=== PATIENT | male | born 1945 | race Caucasian/White ===

== ENCOUNTER 2018-02-26 09:30 | Observation (INO) ==
[2018-02-26] MEDS ORDERED: Nitroglycerin 0.4 MG TAB.SUBL SL ONE (09:44)
[2018-02-26] MEDS ORDERED: Aspirin 81 MG TAB.CHEW PO ONE (09:44)
--- NOTE | 2018-02-26 09:59 | Emergency Department Note ---
Disposition Clinical Impression: SHANNAN (acute kidney injury), Shortness of breath Chest pain Qualifiers: Chest pain type: chest pain on breathing Qualified Code(s): R07.1 - Chest pain on breathing Atrial fibrillation Qualifiers: Atrial fibrillation type: unspecified Qualified Code(s): I48.91 - Unspecified atrial fibrillation Disposition: Admitted As Inpatient Condition: Fair Referrals: Yusef Rodas Jr, MD [Primary Care Provider] - Forms: ED Satisfaction Letter Chest Pain HPI - General Chief Complaint: ED Chest Pain Stated Complaint: chest pain Time Seen by Provider: 02/26/18 09:36 Source: patient, family Limitations: no limitations Vital Signs Reviewed: Yes - History of Present Illness HPI Narrative: The patient is a 72 year old male with a history of CAD, HTN, DM type II, atrial fibrillation on eliquis that presents with chest pain. per patient's report, starting last night around 18:30 last night he develops persistent left- sided chest pain that is achy in character and radiates up into the left neck. His chest pain is exacerbated by deep breaths. He denies exacerbation of his chest pain with exertion. He denies any alleviating factors and states resting does not help to alleviated his chest pain. Patient rates his pain a 7-8/10 at present. Patient denies any prior similar episodes and says this does no feel the same when he had to have cariac stents in the past. Patient admits to dyspnea, chills, and night sweats. Patient denies nay fever, headaches, dizziness, palpitation, abdominal pain, nausea, vomiting, diarrhea, hematuria, hematochezia, melena, numbness, tingling, and weakness. Patient took 81 mg of ASA and his Eliquis at home this morning. Patient is on testosterone therapy. He denies any recent hospitalization, extended travel, surgeries, history of DVT and PE. I have re-performed and reviewed the history documented by the medical student, and I confirm its accuracy except as noted below 2-year-old male history CAD, hypertension, diabetes and A. fib on Eliquis presented here with chest pain. He said it did start last night and is left- sided achy radiating up into the left neck. Worsening with deep breaths exacerbation does not change it. Patient states the pain is 7 out of 10 currently and has worsened over the night of the cause them to come in. He does have history of cardiac stents. He does take a baby aspirin as well as Eliquis which he took this morning. She also has shortness of breath. This is a very uncommon for him. He does not have any complaints at this time including no headaches, blurry vision, neck pain, back pain, abdominal pain, changes in bowel movements, pain with urination, pain or tingling going down the arms or legs or any generalized weakness. Severity scale (1-10): 8 - Related Data Home Medications Medication Instructions Recorded Confirmed Acetaminophen/Butalbital/Caffe 1 tab PO Q4-6H PRN 02/26/18 02/26/18 [Fioricet] Apixaban [Eliquis] 2.5 mg PO BID 02/26/18 02/26/18 Aspirin [Adult Aspirin] 81 mg PO DAILY 02/26/18 02/26/18 Carvedilol 12.5 mg PO BID 02/26/18 02/26/18 Cyanocobalamin (Vitamin B-12) 1,000 mcg PO DAILY 02/26/18 02/26/18 [Vitamin B12] Eszopiclone [Lunesta] 2 mg PO HS PRN 02/26/18 02/26/18 Isosorbide MONOnitrate (24 HR) 30 mg PO DAILY 02/26/18 02/26/18 [Imdur] SitaGLIPtin [Januvia] 100 mg PO DAILY 02/26/18 02/26/18 Testosterone Cypionate 200 mg IM QWEEK 02/26/18 02/26/18 [Depo-Testosterone] Tramadol HCl [Ultram] 50 mg PO QID PRN 02/26/18 02/26/18 amLODIPine [Norvasc] 5 mg PO DAILY 02/26/18 02/26/18 metFORMIN [Glucophage] 1,000 mg PO BIDWM 02/26/18 02/26/18 Allergies Allergy/AdvReac Type Severity Reaction Status Date / Time fluconazole [From Diflucan] AdvReac Hives Verified 05/29/15 10:43 All systems ED: reviewed and negative except as stated. Review of Systems: As Per HPI Constitutional: Reports: chills, night sweats. Denies: fever Eyes: Denies: eye pain, vision change ENT ED: Denies: throat pain, congestion Cardiovascular: Reports: chest pain. Denies: palpitations, syncope Respiratory: Reports: dyspnea. Denies: cough, sputum production Gastrointestinal: Denies: abdominal pain, nausea, vomiting, diarrhea, constipation, hematemesis, melena Genitourinary: Denies: urgency, dysuria, frequency, hematuria Musculoskeletal: Reports: neck pain. Denies: back pain Integumentary: Denies: rash, abrasion Neurological: Denies: headache, weakness, numbness, paresthesias Endocrine: Denies: fatigue Hematological/Lymphatic: Denies: easy bleeding, easy bruising Allergic/Immunologic: Denies: facial swelling, urticaria Chest Pain PMH - Past Medical History Medical history: Reports: atrial fibrillation, diabetes, hypertension, other ( hypertension) Surgical history: Reports: other (cardiac stents) Psychiatric history: Reports: no psych history - Social History Smoking Status: Never smoker Alcohol use: Reports: none Drug use: Reports: none Physical Exam - General Limitations: no limitations General appearance: alert, in no apparent distress - Head Head exam: atraumatic, normocephalic - Eye Eye exam: Present: normal appearance. Absent: scleral icterus, conjunctival injection - ENT ENT exam: mucous membranes moist, normal external ear exam - Neck Neck exam: Present: normal inspection, full ROM, trachea midline - Chest Chest inspection: Present: normal inspection, symmetric chest wall rise. Absent : tenderness, rash - Respiratory Respiratory exam: Present: normal lung sounds bilaterally. Absent: respiratory distress, wheezes - Cardiovascular Cardiovascular exam: Present: regular rate, other (irregularly irregular rhythm) . Absent: systolic murmur, diastolic murmur, rubs, gallop - Expanded Cardiovascular Exam Peripheral pulses: 2+: radial (R), radial (L), dorsalis pedis (R), dorsalis pedis (L) - Abdominal Exam Abdominal exam: Present: soft, Non-Tender, normal bowel sounds. Absent: distention, guarding, rebound, rigidity - Extremities Exam Extremities exam: Present: normal inspection, full ROM. Absent: pedal edema - Back Exam Back exam: Present: normal inspection, full ROM. Absent: rashes - Neurological Exam Neurological exam: Present: alert, oriented X3 - Psychiatric Psychiatric exam: Present: normal affect, normal mood - Skin Skin exam: Present: warm, dry, intact, normal color. Absent: rash, cyanosis Course Course Narrative: 32-year-old male presented here with chest pain EKG had some changes so we did get an immediate EKG as well as getting basic labs including CBC, BMP, troponin. EKG first showed some odd changes so we did get a repeat EKG depending on these results will depend our disposition. Patient was also started with nitroglycerin he is on Eliquis R took a baby aspirin. Vital Signs Temperature 98.1 F 02/26/18 09:38 Pulse Rate 95 02/26/18 09:38 Respiratory Rate 18 02/26/18 09:38 Blood Pressure 135/100 02/26/18 09:38 O2 Sat by Pulse Oximetry 97 02/26/18 09:38 Temperature 98.1 F 02/26/18 09:38 Pulse Rate 75 02/26/18 11:28 Respiratory Rate 16 02/26/18 11:28 Blood Pressure 112/64 02/26/18 11:28 O2 Sat by Pulse Oximetry 100 02/26/18 11:28 Oxygen Delivery Oxygen Delivery Aerosol Mask Chest Pain - [facility] Narrative Medical decision making narrative: Patient presented here in chest pain as well as very diaphoretic he said the pain was very bad and is having a hard time breathing. We did give the first EKG which should have mild ST elevation in lead 1 just on a few beats of his said to get a repeat EKG at that time lead 1 and lead 2 and aVL all showed ST elevation so this time we decided to call a STEMI alert. I spoke with Dr. Gallegos and he said he would come to bedside and see the patient. The STEMI alert was called at [address] Gallegos came by and reviewed the EKGs and saw the patient at bedside. He felt that he was going to wait until labs came back until he wanted to take the patient to the [facility]. He said he was more worried about pericarditis or possible aortic aneurysm. So here she recommended that we do a CT and she will of the chest abdomen pelvis to rule out that. He said he would follow up after the labs and the CT on if patient needs catheterization. We started patient on morphine as well as nitroglycerin also gave him IV fluids. Patient did not need any heparin as he was arty on Eliquis. We did a third EKG which again showed the same elevations in lead [address] Gallegos reviewed this at 1019 at bedside and he said it that is time he did not need a catheter and this was not a STEMI. He said he wanted to follow up on the troponin as if patient's pain has been going on for more than 12 hours he should have a bump in his troponin he would take him at that time. Troponin came back not elevated CT chest abdomen pelvis came back with no acute findings. Patient does have known chronic kidney disease but we weighed the risks and benefits of doing CT and she will chest abdomen pelvis we felt that the benefit of getting it to rule out aortic dissection was worthwhile even due to patient's chronic kidney disease. We will give patient a full liter fluid bolus and then follow him with maintenance 150 mL. Patient's kidney disease did show a GFR of 33. I contacted the outsole compressor waste cotton cleaner Dr. Mauricio Staley who agreed with our plan and said they will consult with the patient when he is admitted. I spoke with the family and they said they would like him to be admitted here rather than [facility]. Patient is currently stable at this time. He got a second dose of morphine which has helped with his chest pain also started on DuoNeb nebulizers. Patient also got 125 mg Solu-Medrol as this could be inflammation. Also had an ESR CRP which are still pending. Patient no other lab abnormalities. Patient will be admitted to the hospital service for further evaluation. On the differential this could be acute pericarditis could be pleurisy, could still be an acute RI. We will recommend that cardiology and nephrology continue to follow with the hospitalist service. Patient is still stable with normal vital signs at this time. 1200 Repeat EKG was done which showed no more elevations in 1 and aVL but more increased elevations in V1 through V4. I did send this to the factory focus technician he wanted us to get a stat repeat troponin. That is currently pending at this time. Patient says that the chest pain is nearly gone he did get a DuoNeb which did help tremendously with his pain. He also a second dose of morphine. Solu-Medrol was also started. 1300 spoke with cardiology and patient still not having pain he will not taken to [facility] they will get a repeat troponin as well as a stat echocardiogram. I did speak with the hospitalist Dr. Praod who agreed to admit the patient to their service. Patient is admitted in stable condition. He still chest pain- free. Cardiology said they will hold off on the catheterization until the echocardiogram and troponin return. Chest X-Ray 02/26/18 09:44 IMPRESSION: Low lung volumes. No acute cardiopulmonary disease. D/ / Champ Ortega MD / Champ Ortega MD Interpreting Provider: Champ Ortega MD Chest CTA 02/26/18 10:21 IMPRESSION: 1. No acute abnormality in the chest, abdomen or pelvis. No aortic dissection. No PE. 2. Severe coronary artery disease of the LAD. 3. 1.4 cm right thyroid nodule. No further imaging follow-up is necessary, as outlined below. RECOMMENDATIONS: Managing Incidental Thyroid Nodule Detected at CT or MRI or US 1. Further evaluation by thyroid Ultrasound recommended for these incidental nodules: Patient Age 18 years or less - Nodule of any size Patient Age 19-34 years old - Nodule 1 cm in size or greater Patient Age 35 years or more - Nodule 1.5 cm in size or greater 2. Follow up thyroid ultrasound also recommend in these scenarios - Solitary nodule with high risk imaging features (locally invasive nodule or suspicious lymph nodes) - Heterogeneous, enlarged thyroid gland. - Increased uptake on PET 3. NO further imaging is recommended in the following scenarios - Any nodule not meeting above criteria. - Those patients with limited life expectancy or significant Co-morbidities. Note: These recommendations do not apply to pts. w/ increased risk for thyroid cancer or pts. with symptomatic thyroid disease. Recommendations for f/u of Incidental Thyroid Nodules (ITN) found on CT, MR, NM and Extrathyroidal US are based upon the ACR white paper and Artis 3-tiered system for managing ITNs: J Am Gato Radiol. 2015 Jun;12(2): 143-50 D/ / 02/26/2018 11:12:45 Champ Ortega MD / lucita Interpreting Provider: Champ Ortega MD Abdomen/Pelvis CTA 02/26/18 10:22 IMPRESSION: 1. No acute abnormality in the chest, abdomen or pelvis. No aortic dissection. No PE. 2. Severe coronary artery disease of the LAD. 3. 1.4 cm right thyroid nodule. No further imaging follow-up is necessary, as outlined below. RECOMMENDATIONS: Managing Incidental Thyroid Nodule Detected at CT or MRI or US 1. Further evaluation by thyroid Ultrasound recommended for these incidental nodules: Patient Age 18 years or less - Nodule of any size Patient Age 19-34 years old - Nodule 1 cm in size or greater Patient Age 35 years or more - Nodule 1.5 cm in size or greater 2. Follow up thyroid ultrasound also recommend in these scenarios - Solitary nodule with high risk imaging features (locally invasive nodule or suspicious lymph nodes) - Heterogeneous, enlarged thyroid gland. - Increased uptake on PET 3. NO further imaging is recommended in the following scenarios - Any nodule not meeting above criteria. - Those patients with limited life expectancy or significant Co-morbidities. Note: These recommendations do not apply to pts. w/ increased risk for thyroid cancer or pts. with symptomatic thyroid disease. Recommendations for f/u of Incidental Thyroid Nodules (ITN) found on CT, MR, NM and Extrathyroidal US are based upon the ACR white paper and Artis 3-tiered system for managing ITNs: J Am Gato Radiol. 2015 Jun;12(2): 143-50 D/ / 02/26/2018 11:12:45 Champ Ortega MD / lucita Interpreting Provider: Champ Ortega MD Chest X-Ray 02/26/18 09:44 IMPRESSION: Low lung volumes. No acute cardiopulmonary disease. D/ / Champ Ortega MD / Champ Ortega MD Interpreting Provider: Champ Ortega MD - Medical Records Medical records reviewed: Yes I reviewed the patient's medical records. - Lab Data Lab results reviewed: Yes I reviewed the patient's lab results. Result diagrams: 02/26/18 09:54 02/26/18 09:54 Lab Results 02/26/18 02/26/18 02/26/18 Range/Units 09:44 09:44 09:54 WBC 11.1 (4.3-11.1) K/mcL RBC 5.29 (4.19-5.50) M/mcL Hgb 15.4 (12.9-16.9) g/dL Hct 46.9 (37.5-50.1) % MCV 88.7 (83.0-100.0) fL MCH 29.1 (28.0-33.3) pg MCHC 32.8 (31.6-35.5) g/dL RDW 13.2 (11.5-14.5) % Plt Count 116 L (140-400) K/mcL MPV 12.3 (9.4-12.4) fL Immature Gran % 0.5 (0-4) % Seg Neutrophils % 83.9 % Lymphocytes % 8.5 % Monocytes % 6.6 % Eosinophils % 0.2 % Basophils % 0.3 % Neutrophils # 9.3 H (1.6-8.9) K/mcL Lymphocytes # 0.9 (0.6-4.6) K/mcL Monocytes # 0.7 (0.0-1.3) K/mcL Eosinophils # 0.0 (0.0-0.6) K/mcL Basophils # 0.0 (0.0-0.2) K/mcL ESR (0-10) mm/hr PT 14.7 H (9.4-12.1) Seconds INR 1.3 APTT 39.0 H (26.0-36.0) Seconds Sodium (136-145) mEq/L Potassium (3.5-5.1) mEq/L Chloride (98-107) mEq/L Carbon Dioxide (23-29) mEq/L BUN (8-23) mg/dL Creatinine (0.70-1.30) mg/dL Est GFR ( Amer) (> 60) Est GFR (Non-Af Amer) (> 60) BUN/Creatinine Ratio (6-26) Glucose (70-105) mg/dL Calculated Osmolality (280-300) Calcium (8.6-10.3) mg/dL Troponin I (< 0.04) ng/mL C-Reactive Protein (Less than 10) mg/L B-Natriuretic Peptide 437 H (Less than 100) pg/mL 02/26/18 02/26/18 02/26/18 Range/Units 09:54 11:02 11:45 WBC (4.3-11.1) K/mcL RBC (4.19-5.50) M/mcL Hgb (12.9-16.9) g/dL Hct (37.5-50.1) % MCV (83.0-100.0) fL MCH (28.0-33.3) pg MCHC (31.6-35.5) g/dL RDW (11.5-14.5) % Plt Count (140-400) K/mcL MPV (9.4-12.4) fL Immature Gran % (0-4) % Seg Neutrophils % % Lymphocytes % % Monocytes % % Eosinophils % % Basophils % % Neutrophils # (1.6-8.9) K/mcL Lymphocytes # (0.6-4.6) K/mcL Monocytes # (0.0-1.3) K/mcL Eosinophils # (0.0-0.6) K/mcL Basophils # (0.0-0.2) K/mcL ESR 35 H (0-10) mm/hr PT (9.4-12.1) Seconds INR APTT (26.0-36.0) Seconds Sodium 138 (136-145) mEq/L Potassium 4.1 (3.5-5.1) mEq/L Chloride 102 (98-107) mEq/L Carbon Dioxide 25 (23-29) mEq/L BUN 22 (8-23) mg/dL Creatinine 1.99 H (0.70-1.30) mg/dL Est GFR ( Amer) 40 L (> 60) Est GFR (Non-Af Amer) 33 L (> 60) BUN/Creatinine Ratio 11 (6-26) Glucose 156 H (70-105) mg/dL Calculated Osmolality 293 (280-300) Calcium 9.1 (8.6-10.3) mg/dL Troponin I < 0.03 < 0.03 (< 0.04) ng/mL C-Reactive Protein 68 H (Less than 10) mg/L B-Natriuretic Peptide (Less than 100) pg/mL - Radiology Data Radiology results reviewed: Yes I reviewed the patient's radiology results. - EKG Data EKG attestation: Yes I reviewed and interpreted this EKG. EKG results narrative: EKG #1 done at 0 941 review by myself and attending shows atrial fibrillation at a rate of 98, QRS 98 QTC [address] elevation in leads 1 and aVL just on one beat. Does have a left bundle-branch block. No other acute ST changes or acute T-wave changes no other signs of ischemia. No hypertrophy, heart strain no other heart blocks. No Ludy PW/Brugada/HOCM. EKG #2 shows atrial fibrillation a rate of 95, QRS 102, QTC 435. Patient does have ST elevation in leads 1 and aVL no other reciprocal changes still does have a left bundle branch block in leads V1 through V3. At this time the suicide to call his an acute STEMI. There is no other changes based on previous EKG. EKG #3 shows atrial fibrillation a rate of 73, QRS 97, QTC 388. There is still ST elevation in leads 1 and aVL still the left bundle-branch block in V1 through V3. This was reviewed by the factory focus technician at bedside Dr. Gallegos he feels this is not an acute RI and they will not take to the [facility]. There is no other acute changes based on previous EKGs. EKG #4 done at 1127 shows regular rate and a rate of 79, AK interval 147, QRS 95 , QTC 414. There is no more ST elevation in leads 1 and aVL. Has increased elevations in leads V1 through V4. Otherwise no other signs of ischemia. No other acute changes when compared with earlier ones Heart Score - Score History: Highly Suspicious EKG: Significant ST-Depression Age: Greater than 65 Risk Factors: Equal/Greater than 3 risk factor or history of atherosclerotic disease Troponin: Less than normal limit HEART Score Total: 8 Attestation Statement - Attestation Attestation: I, Brad Perez DO, examined this patient [id number] and my medical decision-making was reviewed with Dr. Michel Little, Resident Physician. I agree with the documented findings, disposition and treatment plan as described except to the extent set forth below. Please see my progress notes for details.
[2018-02-26 10:12] LABS: Basophils % 0.3 %; Eosinophils % 0.2 %; Hematocrit 46.9 % (37.5-50.1); Hemoglobin 15.4 g/dL (12.9-16.9); Immature Granulocytes % 0.5 % (0-4); Lymphocytes # 0.9 K/mcL (0.6-4.6); Lymphocytes % 8.5 %; Mean Corpuscular HGB Conc 32.8 g/dL (31.6-35.5); Mean Corpuscular Hemoglobin 29.1 pg (28.0-33.3); Mean Corpuscular Volume 88.7 fL (83.0-100.0); Mean Platelet Volume 12.3 fL (9.4-12.4); Monocytes # 0.7 K/mcL (0.0-1.3); Monocytes % 6.6 %; Neutrophils # 9.3 K/mcL (1.6-8.9); Platelet Count 116 K/mcL (140-400); Red Blood Count 5.29 M/mcL (4.19-5.50); Red Cell Distribution Width 13.2 % (11.5-14.5); Segmented Neutrophils % 83.9 %
--- NOTE | 2018-02-26 10:12 | Emergency Department Note ---
Disposition Clinical Impression: SHANNAN (acute kidney injury), Atrial fibrillation, Shortness of breath Chest pain Qualifiers: Chest pain type: chest pain on breathing Qualified Code(s): R07.1 - Chest pain on breathing Disposition: Admitted As Inpatient Condition: Fair Referrals: Yusef Rodas Jr, MD [Primary Care Provider] - Forms: ED Satisfaction Letter Time of Disposition: 12:59 General Adult HPI - General Chief complaint: ED Chest Pain Stated complaint: chest pain Time Seen by Provider: 02/26/18 09:36 Source: patient, family Limitations: no limitations - History of Present Illness Pain Scale: 8 - Related Data Home Medications Medication Instructions Recorded Confirmed Acetaminophen/Butalbital/Caffe 1 tab PO Q4-6H PRN 02/26/18 02/26/18 [Fioricet] Apixaban [Eliquis] 2.5 mg PO BID 02/26/18 02/26/18 Aspirin [Adult Aspirin] 81 mg PO DAILY 02/26/18 02/26/18 Carvedilol 12.5 mg PO BID 02/26/18 02/26/18 Cyanocobalamin (Vitamin B-12) 1,000 mcg PO DAILY 02/26/18 02/26/18 [Vitamin B12] Eszopiclone [Lunesta] 2 mg PO HS PRN 02/26/18 02/26/18 Isosorbide MONOnitrate (24 HR) 30 mg PO DAILY 02/26/18 02/26/18 [Imdur] SitaGLIPtin [Januvia] 100 mg PO DAILY 02/26/18 02/26/18 Testosterone Cypionate 200 mg IM QWEEK 02/26/18 02/26/18 [Depo-Testosterone] Tramadol HCl [Ultram] 50 mg PO QID PRN 02/26/18 02/26/18 amLODIPine [Norvasc] 5 mg PO DAILY 02/26/18 02/26/18 metFORMIN [Glucophage] 1,000 mg PO BIDWM 02/26/18 02/26/18 Allergies Allergy/AdvReac Type Severity Reaction Status Date / Time fluconazole [From Diflucan] AdvReac Hives Verified 05/29/15 10:43 Constitutional: Reports: chills, night sweats. Denies: fever Eyes: Denies: eye pain, vision change ENT ED: Denies: throat pain, congestion Cardiovascular: Reports: chest pain. Denies: palpitations, syncope Respiratory: Reports: dyspnea. Denies: cough, sputum production Gastrointestinal: Denies: abdominal pain, nausea, vomiting, diarrhea, constipation, hematemesis, melena Genitourinary: Denies: urgency, dysuria, frequency, hematuria Musculoskeletal: Reports: neck pain. Denies: back pain Integumentary: Denies: rash, abrasion Neurological: Denies: headache, weakness, numbness, paresthesias Past Medical History - Past Medical History Medical history: Reports: atrial fibrillation, diabetes, hypertension, other ( hypertension) Surgical history: Reports: other (cardiac stents) Psychiatric history: Reports: no psych history - Social History Smoking Status: Never smoker Smokeless Tobacco Status: Yes Alcohol use: Reports: none Drug use: Reports: none Physical Exam - General Limitations: no limitations General appearance: alert, in no apparent distress Course Vital Signs Temperature 98.1 F 02/26/18 09:38 Pulse Rate 95 02/26/18 09:38 Respiratory Rate 18 02/26/18 09:38 Blood Pressure 135/100 02/26/18 09:38 O2 Sat by Pulse Oximetry 97 02/26/18 09:38 Temperature 98.1 F 02/26/18 09:38 Pulse Rate 75 02/26/18 11:28 Respiratory Rate 16 02/26/18 11:28 Blood Pressure 112/64 02/26/18 11:28 O2 Sat by Pulse Oximetry 100 02/26/18 11:28 Oxygen Delivery Oxygen Delivery Aerosol Mask Medical Decision Making - Lab Data Result diagrams: 02/26/18 09:54 02/26/18 09:54 Lab Results 02/26/18 02/26/18 02/26/18 Range/Units 09:44 09:44 09:54 WBC 11.1 (4.3-11.1) K/mcL RBC 5.29 (4.19-5.50) M/mcL Hgb 15.4 (12.9-16.9) g/dL Hct 46.9 (37.5-50.1) % MCV 88.7 (83.0-100.0) fL MCH 29.1 (28.0-33.3) pg MCHC 32.8 (31.6-35.5) g/dL RDW 13.2 (11.5-14.5) % Plt Count 116 L (140-400) K/mcL MPV 12.3 (9.4-12.4) fL Immature Gran % 0.5 (0-4) % Seg Neutrophils % 83.9 % Lymphocytes % 8.5 % Monocytes % 6.6 % Eosinophils % 0.2 % Basophils % 0.3 % Neutrophils # 9.3 H (1.6-8.9) K/mcL Lymphocytes # 0.9 (0.6-4.6) K/mcL Monocytes # 0.7 (0.0-1.3) K/mcL Eosinophils # 0.0 (0.0-0.6) K/mcL Basophils # 0.0 (0.0-0.2) K/mcL ESR (0-10) mm/hr PT 14.7 H (9.4-12.1) Seconds INR 1.3 APTT 39.0 H (26.0-36.0) Seconds Sodium (136-145) mEq/L Potassium (3.5-5.1) mEq/L Chloride (98-107) mEq/L Carbon Dioxide (23-29) mEq/L BUN (8-23) mg/dL Creatinine (0.70-1.30) mg/dL Est GFR ( Amer) (> 60) Est GFR (Non-Af Amer) (> 60) BUN/Creatinine Ratio (6-26) Glucose (70-105) mg/dL Calculated Osmolality (280-300) Calcium (8.6-10.3) mg/dL Troponin I (< 0.04) ng/mL C-Reactive Protein (Less than 10) mg/L B-Natriuretic Peptide 437 H (Less than 100) pg/mL 02/26/18 02/26/18 02/26/18 Range/Units 09:54 11:02 11:45 WBC (4.3-11.1) K/mcL RBC (4.19-5.50) M/mcL Hgb (12.9-16.9) g/dL Hct (37.5-50.1) % MCV (83.0-100.0) fL MCH (28.0-33.3) pg MCHC (31.6-35.5) g/dL RDW (11.5-14.5) % Plt Count (140-400) K/mcL MPV (9.4-12.4) fL Immature Gran % (0-4) % Seg Neutrophils % % Lymphocytes % % Monocytes % % Eosinophils % % Basophils % % Neutrophils # (1.6-8.9) K/mcL Lymphocytes # (0.6-4.6) K/mcL Monocytes # (0.0-1.3) K/mcL Eosinophils # (0.0-0.6) K/mcL Basophils # (0.0-0.2) K/mcL ESR 35 H (0-10) mm/hr PT (9.4-12.1) Seconds INR APTT (26.0-36.0) Seconds Sodium 138 (136-145) mEq/L Potassium 4.1 (3.5-5.1) mEq/L Chloride 102 (98-107) mEq/L Carbon Dioxide 25 (23-29) mEq/L BUN 22 (8-23) mg/dL Creatinine 1.99 H (0.70-1.30) mg/dL Est GFR ( Amer) 40 L (> 60) Est GFR (Non-Af Amer) 33 L (> 60) BUN/Creatinine Ratio 11 (6-26) Glucose 156 H (70-105) mg/dL Calculated Osmolality 293 (280-300) Calcium 9.1 (8.6-10.3) mg/dL Troponin I < 0.03 < 0.03 (< 0.04) ng/mL C-Reactive Protein 68 H (Less than 10) mg/L B-Natriuretic Peptide (Less than 100) pg/mL Critical Care Time Critical Care Time: Yes Total Critical Care Time: 45 Attestation: Critical care performed: Time is exclusive of separately billable procedures. Time includes: direct patient care, patient reassessment, coordination of patient care, interpretation of data (laboratory data, radiology data, and respiratory data), review of patient's medical records, medical consultation and documentation of patient care. Procedures included in critical care time: Procedures excluded from critical care time: Attestation Statement - Attestation Attestation: I, Brad Perez DO, examined this patient [id number] and my medical decision-making was reviewed with Dr. Michel Little, Resident Physician. I agree with the documented findings, disposition and treatment plan as described except to the extent set forth below. Please see my progress notes for details. 72-year-old male presents to the emergency room with substernal chest pressure and pain with tightness that is causing him to have shortness of breath. Patient does have a cardiac history including coronary artery disease and stenting completed a per [facility]. Pain started last night and came on acutely and has not moved. The patient is describing some relief of the pain and symptoms when he sits up and leans forward. Denies any recent illnesses. Denies any fevers or chills. Patient was recently diagnosed with atrial fibrillation and was started on Eliquis. Currently he is denying fevers chills nausea vomiting or diarrhea. Denies any headache or vision change. No recent trauma or injury. He denies any hematemesis, hematuria, hematochezia or melena. Patient has not had any other complaints or symptoms up until this last night when he had the onset of the symptom with chest discomfort pressure and pain. He does not have a history of actual angina past. He was evaluated secondary to generalized weakness and shortness of breath that was causing him issues with exertion at home and ended up having stents placed at that time. There are no previous EKGs from greater than 10 years ago. A stress test from 2016 was reviewed and EKG collected during it did show similar morphology. EKG was collected immediately approximately 7 minutes after arrival the patient here to the emergency room showed abnormalities in multiple leads including several intermittent ST segment elevations in 1 aVL the lateral precordial leads as well as potentially in the inferior leads. There was not diagnostic initially but the dental laboratory worker and receptionist doctor's office were paged at 0946 hours, this was 13 minutes after the patient arrived. The receptionist doctor's office was evaluated in the EKGs when a repeat was collected 15 minutes after arrival. at this time it appears to be diagnostic with continued ST segment elevations in leads 1 and aVL. The septal leads to have a bundle branch that is elevated but appear to be chronic with slight progression here today. The dental laboratory worker Dr. Gallegos reviewed the initial 2 EKGs with the STEMI alert being called at 0957 hours after the second EKG appeared to be diagnostic. Dr. Gallegos was at the bedside to evaluate the patient and performed a detailed medical history. A third EKG did show the same morphology. He feels a because the patient's symptoms being present for 12 hours as well as the pleuritic-like nature of the symptoms with it being better when he sitting upright that the patient would be more benefited from having labs completed prior to catheterization at this time. The chest x-ray is reviewed by myself and there is some potential widening to the mediastinum in comparison to the previous. The patient is describing pressure and pain in his chest wall and feeling like he cannot take a deep breath in. There is no visible signs of a pneumothorax and there is bilateral breath sounds. This was confirmed by the radiologist read. After discussion with the dental laboratory worker as well as review the imaging we will hold off on catheterization but CT angiography the chest and abdomen will be completed to rule out any signs of aneurysm or dissection considering the abnormality on the chest x-ray in comparison to previous as well as the patient's symptoms of pressure and pain. The most recent labs for renal insufficiency. The patient does have an elevated creatinine as well as a GFR 34. He will be provided with fluid hydration. In the context of the presentation the requirement or necessity to rule out dissection or aneurysm with the patient's pain and diaphoresis is most concerning. The risks and benefits were discussed with the patient and the family secondary to his history of renal insufficiency. They understand and are comfortable with the plan. Patient was sent over to CT angiography. 1035 CT angiography completed. As reviewed by myself and does not show any acute signs of aneurysm or dissection. The patient is still having pain and he did not respond initially to nitroglycerin or morphine. Patient does have renal insufficiency and concern for pericarditis at this time with the pain. He has no elevated white blood cell, and his troponin is negative. Patient will be provided with a first dose of Solu-Medrol here for symptomatic control fluids to hydrate and flush out the renal system secondary to the contrast load and nephrology will be consult. Discussion will be had about patient being admitted at this facility is requesting transfer to [facility]. Patient otherwise clinically stable. Patient does feel better when he leans forward. Cardiology informed as well as nephrology. No other recommendations. We will monitor the patient closely. Repeat dosing of pain medication as well as fluid hydration have been started. Steroids having given as well as nausea medication. Patient is comfortable being admitted at this facility as long as there is nothing else surgical that is required in the chest to the abdomen. We will continue to monitor closely. Pain control will be established 1140 Patient's initial troponin was negative. A fourth EKG was collected just because the patient has had some slight resolution of the chest pain. Repeat EKG shows resolution of the ST segment elevations in leads 1 and aVL they are now inverted T waves noted there. Patient also has what looks like potential ST segment elevation in V2 V3 and V4 but it appears to be similar in nature to the previous EKGs but will be reviewed by cardiology. The patient now does not have any active chest pain. He only has a slight twinge in the side of his neck. We will continue to monitor closely and follow the patient's care and admission. 1235 Patient is still 100% asymptomatic. He is describing the shortness of breath but he does disclose that this shortness of breath has been present ever since he was diagnosed with atrial fibrillation. Patient is denying any other complaints. [employer] Dr. Gallegos reevaluated the patient the bedside here in the emergency room and felt comfortable with him being admitted to the floor for continuation of cardiac evaluation stat echocardiogram and repeat troponin. Patient will be admitted for continued observation and evaluation for the shortness of breath as well as monitoring. The hospitalist was contacted. Dr. Prado reviewed the case is comfortable with the patient being admitted at this time. No other clinical concerns or issues. Patient is artery on a blood thinner and will be managed in the hospital setting at this time. 45 minutes of critical care applied the patient's treatment course. Patient feels like he is at baseline at this time.
[2018-02-26] MEDS ORDERED: *HR* Morphine 2 MG/ML SYRINGE IVP ONE ×2 (10:13→10:46)
[2018-02-26 10:18] LABS: INR 1.3; Prothrombin Time 14.7 Seconds (9.4-12.1)
[2018-02-26] MEDS ORDERED: 0.9 % Sodium Chloride 1,000 ML IVC ONE (10:21)
[2018-02-26] MEDS ORDERED: 0.9 % Sodium Chloride 1,000 ML ONE ×3 (10:21→18:52)
[2018-02-26] MEDS ORDERED: Isovue-370 500 ML INFUS..BTL IV ONE ×2 (10:22→10:45)
[2018-02-26] MEDS ORDERED: Ondansetron 4 MG/2 ML VIAL IVP ONE (10:22)
[2018-02-26 10:31] LABS: Troponin I < 0.03 ng/mL (< 0.04)
[2018-02-26 10:36] LABS: BUN/Creatinine Ratio 11 (6-26); Blood Urea Nitrogen 22 mg/dL (8-23); Calcium 9.1 mg/dL (8.6-10.3); Carbon Dioxide 25 mEq/L (23-29); Chloride 102 mEq/L (98-107); Glucose 156 mg/dL (70-105); Osmolality,Calculated 293 (280-300); Potassium 4.1 mEq/L (3.5-5.1); Sodium 138 mEq/L (136-145); eGFR For Non-African Americans 33 (> 60)
[2018-02-26] MEDS ORDERED: methylPREDNISolone 125 MG/2 ML VIAL IVP ONE (10:42)
[2018-02-26] MEDS ORDERED: Ipratropium/Albuterol Neb 3 ML IH ONE (10:45)
[2018-02-26 11:15] LABS: C-Reactive Protein 68 mg/L (Less than 10)
[2018-02-26] MEDS ORDERED: Naloxone 0.4 MG/ML INJ IVP PRN (12:31)
[2018-02-26] MEDS ORDERED: OXYCODONE Oral CONC 10 MG/0.5 ML ORAL.SYG SL PRN ×2 (12:31)
[2018-02-26] MEDS ORDERED: Ondansetron 4 MG/2 ML VIAL IVP PRN (12:31)
[2018-02-26] MEDS ORDERED: Acetaminophen/Butalbital/CaffeineTABLET PO PRN (12:32)
[2018-02-26] MEDS ORDERED: Dextrose Gel 15 GM/37.5 ML TUBE PO PRN ×2 (12:36)
[2018-02-26] MEDS ORDERED: D5% in Water 1,000 ML IVC PRN (12:36)
[2018-02-26] MEDS ORDERED: *HR* Dextrose 50 % in Water (Syg) 50 ML SYRINGE IVP PRN (12:36)
--- NOTE | 2018-02-26 13:19 | Cardiology Consult Note ---
Date of Encounter: 02/26/18 Time of Encounter: 13:15 Assessment and Plan (1) Chest pain Current Visit: Yes Status: Acute Patient presents with severe chest pain that is pleuritic in nature. Pain increases with deep breaths. Troponin negative. EKG reviewed with interventionalist and it did not meet STEMI criteria. Emergent LHC not indicated. TTE ordered and pending. Further recommendations to follow. Order placed to obtain records from recent [facility] work-up. Qualifiers: Chest pain type: chest pain on breathing Qualified Code(s): R07.1 - Chest pain on breathing; R07.81 - Pleurodynia (2) Atrial fibrillation Current Visit: Yes Status: Chronic Recent diagnosis afib on eliquis. Currently rate controlled. He is following with Dr. Ny to discuss ablation. Qualifiers: Atrial fibrillation type: unspecified Qualified Code(s): I48.91 - Unspecified atrial fibrillation Discussion w patient/family: The assessment and plan as outlined above was discussed with the patient and/or family members who expressed understanding and agreement. All questions were answered. Thank you for involving us in the care of your patient. Please call with any questions. History of Present Illness Consult date: 02/26/18 Requesting physician: Michel Little Consult reason: EKG changes, chest pain. Chief complaint: Severe 10/10 left sided chest pain radiating to his neck. History of present illness: Mr. Swann is a 72 year old male with past medical history of CAD s/p PCI to his LAD, recent diagnosis of atrial fibrillation, HTN, DM type II, and HLD. He presents with the c/o severe 10/10 chest pain that started at 6:30 pm last night. When he took a deep breath his pain radiated to his neck. His pain was constant for several hours prior coming to the ED. His pain would improve when he would lean forward. Once in the ED he was given morphine with relief of his pain. He is now pain free. The interventionalist was initially called due to ST elevatin that was seen on his EKG. Compared to prior EKG ST elevation more prominent in V1-V3 and rate controlled afib. Troponin was negative. It was decided that he was not an acute ND. CTA of the chest showed no acute PE or aortic dissection. There was severe disease seen in the LAD. Past Med Surg Social Fam HX - Past Medical History Medical history: atrial fibrillation, diabetes, hypertension, other ( hypertension) Psychiatric history: no psych history - Past Surgical History Surgical History: other (cardiac stents) - Social History Smoking Status: Never smoker Smokeless Tobacco Status: Yes Alcohol use: none Drug use: none Medications and Allergies Acetaminophen/Butalbital/Caffe [Fioricet] 1 tab PO Q4-6H PRN 02/26/18 [History] Apixaban [Eliquis] 2.5 mg PO BID 02/26/18 [History] Aspirin [Adult Aspirin] 81 mg PO DAILY 02/26/18 [History] Carvedilol 12.5 mg PO BID 02/26/18 [History] Cyanocobalamin (Vitamin B-12) [Vitamin B12] 1,000 mcg PO DAILY 02/26/18 [History ] Eszopiclone [Lunesta] 2 mg PO HS PRN 02/26/18 [History] Isosorbide MONOnitrate (24 HR) [Imdur] 30 mg PO DAILY 02/26/18 [History] SitaGLIPtin [Januvia] 100 mg PO DAILY 02/26/18 [History] Testosterone Cypionate [Depo-Testosterone] 200 mg IM QWEEK 02/26/18 [History] Tramadol HCl [Ultram] 50 mg PO QID PRN 02/26/18 [History] amLODIPine [Norvasc] 5 mg PO DAILY 02/26/18 [History] metFORMIN [Glucophage] 1,000 mg PO BIDWM 02/26/18 [History] 3 Allergy/AdvReac Type Severity Reaction Status Date / Time fluconazole [From Diflucan] AdvReac Hives Verified 05/29/15 10:43 All Systems Review: The remainder of the systems were reviewed and are negative Physical Examination Vital Signs, Last 4 Hours Temp Pulse Resp BP Pulse Ox 02/26/18 11:28 75 16 112/64 100 02/26/18 10:58 18 98 02/26/18 10:07 84 18 127/85 97 02/26/18 10:05 89 18 135/93 96 02/26/18 09:49 82 18 135/100 98 02/26/18 09:38 98.1 F 95 18 135/100 97 General: Conversant, No Apparent Distress HEENT: Atraumatic, Normocephaly, Mucus Membranes Moist Neck: No JVD, Normal carotid pulses Cardiac: Other (Irregular) Lungs: Normal Breath Sounds, No Wheeze, Rales, Rhonchi Neuro: Alert and responsive, No focal deficits noted Abdomen: Soft, Non-Tender Skin: No rashes noted on visualized skin Musculoskeletal: No Chest Wall Tenderness Extremities: No Clubbing, No Cyanosis, No Edema, Normal Pulses Results 02/26/18 09:54 02/26/18 09:54 Lab Results 02/26/18 02/26/18 02/26/18 09:44 09:44 09:54 WBC 11.1 Hgb 15.4 Hct 46.9 Plt Count 116 L INR 1.3 APTT 39.0 H Sodium Potassium Chloride Carbon Dioxide BUN Creatinine Glucose Calcium Troponin I B-Natriuretic Peptide 437 H 02/26/18 02/26/18 09:54 11:45 WBC Hgb Hct Plt Count INR APTT Sodium 138 Potassium 4.1 Chloride 102 Carbon Dioxide 25 BUN 22 Creatinine 1.99 H Glucose 156 H Calcium 9.1 Troponin I < 0.03 < 0.03 B-Natriuretic Peptide - Imaging and Cardiology Stress Test: report reviewed - EKG Interpretation EKG results cardiology: personally reviewed Consult Discharge Plan - Plan Referrals: Yusef Rodas Jr, MD [Primary Care Provider] -
--- NOTE | 2018-02-26 13:19 | Internal Med History&Physical ---
Date of Encounter: 02/26/18 Time of Encounter: 13:30 Internal Medicine - H&P: HPI Chief complaint: chest pain Admitted From: Home History of present illness: Mr. Swann is a 72 year old male with history of CAD s/p PCI to LAD in 2016, diabetes, hypertension, hyperlipidemia, Afib on Eliquis, was admitted for sudden onset of chest pain since last night. Achy in nature, constant, located on the left chest with radiation into L neck. Worse with breathing without clear association with exertion and no relieving factors. Denies fevers/chills , nausea/vomiting, cough, sputum production, flu-like symptoms, or sick contacts. However, he endorsed hx of night sweats and unintentional weight loss of 20lbs over the last 6 months. No GI/ symptoms. It is reported that he was extremely diaphoretic on arrival to the ED. Initial vital signs reviewed. Labs were unremarkable with normal troponin. EKG however was concerning for mild ST elevation in lead 1 and hence STEMI alert was activated. It is reported that Cardiology had evaluated the patient and after reviewing a series of EKG as well as troponin, the decision was made to hold off on the cath. Meanwhile, CT angios of chest/Abdo/pelvis came out negative for aortic dissection. Patient's symptoms improved with IV morphine, sublingual nitroglycerin, aspirin, and IV Solu-Medrol. Initial EKG changes that were concerning also disappeared. Patient is sent for stat echocardiogram and admitted for further management. Past Med Surg Social Fam HX - Past Medical History Attestation: Yes The following information was validated with the patient. Medical history: atrial fibrillation, diabetes, hypertension, other ( hypertension) Psychiatric history: no psych history - Past Surgical History Surgical History: other (cardiac stents) - Social History Smoking Status: Never smoker Smokeless Tobacco Status: Yes Alcohol use: none Drug use: none Internal Medicine - H&P: Meds Acetaminophen/Butalbital/Caffe [Fioricet] 1 tab PO Q4-6H PRN 02/26/18 [History] Apixaban [Eliquis] 2.5 mg PO BID 02/26/18 [History] Aspirin [Adult Aspirin] 81 mg PO DAILY 02/26/18 [History] Carvedilol 12.5 mg PO BID 02/26/18 [History] Cyanocobalamin (Vitamin B-12) [Vitamin B12] 1,000 mcg PO DAILY 02/26/18 [History ] Eszopiclone [Lunesta] 2 mg PO HS PRN 02/26/18 [History] Isosorbide MONOnitrate (24 HR) [Imdur] 30 mg PO DAILY 02/26/18 [History] SitaGLIPtin [Januvia] 100 mg PO DAILY 02/26/18 [History] Testosterone Cypionate [Depo-Testosterone] 200 mg IM QWEEK 02/26/18 [History] Tramadol HCl [Ultram] 50 mg PO QID PRN 02/26/18 [History] amLODIPine [Norvasc] 5 mg PO DAILY 02/26/18 [History] metFORMIN [Glucophage] 1,000 mg PO BIDWM 02/26/18 [History] 3 Allergy/AdvReac Type Severity Reaction Status Date / Time fluconazole [From Diflucan] AdvReac Hives Verified 05/29/15 10:43 All Systems PM: A 10-system review of systems was performed and is negative for pertinent findings except as documented above in the HPI. - Constitutional Vitals: Temp Pulse Resp BP Pulse Ox 98.1 F 75 16 112/64 100 02/26/18 09:38 02/26/18 11:28 02/26/18 11:28 02/26/18 11:28 02/26/18 11:28 Exam: General: Alert and oriented, not in acute distress. HEENT:EOM, pupils equal, round and reactive. No cervical lymphadenopathy Cardiovascular:Normal S1 & S2, No JVD. Irregular rhythm, normal rate. No chest wall tenderness Lungs: clear to auscultation, no wheezes/rales Abdomen:Soft, non-tender, no rigidity. Extremities:No deformity or swelling Neurological:Normal cognition and motor skills. Non-focal Skin:Normal color, no rash, no lesions. Pulses:Carotid and radial pulses normal +2. Rest of the physical exam is non contributory Internal Med - H&P Results - Labs CBC & Chem 7: 02/26/18 09:54 02/26/18 09:54 Labs: Short CBC 02/26/18 Range/Units 09:54 WBC 11.1 (4.3-11.1) K/mcL Hgb 15.4 (12.9-16.9) g/dL Hct 46.9 (37.5-50.1) % Plt Count 116 L (140-400) K/mcL Neutrophils # 9.3 H (1.6-8.9) K/mcL BMP 02/26/18 09:54 Sodium 138 Potassium 4.1 Chloride 102 Carbon Dioxide 25 BUN 22 Creatinine 1.99 H Glucose 156 H Calcium 9.1 Cardiac Enzymes 02/26/18 02/26/18 Range/Units 09:54 11:45 Troponin I < 0.03 < 0.03 (< 0.04) ng/mL - Impressions ITS Impressions Chest X-Ray 02/26/18 09:44 IMPRESSION: Low lung volumes. No acute cardiopulmonary disease. D/ / Champ Ortega MD / Champ Ortega MD Interpreting Provider: Champ Ortega MD Chest CTA 02/26/18 10:21 IMPRESSION: 1. No acute abnormality in the chest, abdomen or pelvis. No aortic dissection. No PE. 2. Severe coronary artery disease of the LAD. 3. 1.4 cm right thyroid nodule. No further imaging follow-up is necessary, as outlined below. RECOMMENDATIONS: Managing Incidental Thyroid Nodule Detected at CT or MRI or US 1. Further evaluation by thyroid Ultrasound recommended for these incidental nodules: Patient Age 18 years or less - Nodule of any size Patient Age 19-34 years old - Nodule 1 cm in size or greater Patient Age 35 years or more - Nodule 1.5 cm in size or greater 2. Follow up thyroid ultrasound also recommend in these scenarios - Solitary nodule with high risk imaging features (locally invasive nodule or suspicious lymph nodes) - Heterogeneous, enlarged thyroid gland. - Increased uptake on PET 3. NO further imaging is recommended in the following scenarios - Any nodule not meeting above criteria. - Those patients with limited life expectancy or significant Co-morbidities. Note: These recommendations do not apply to pts. w/ increased risk for thyroid cancer or pts. with symptomatic thyroid disease. Recommendations for f/u of Incidental Thyroid Nodules (ITN) found on CT, MR, NM and Extrathyroidal US are based upon the ACR white paper and Artis 3-tiered system for managing ITNs: J Am Gato Radiol. 2014;12(2): 143-50 D/ /26/2018 11:12:45 Champ Ortega MD / lucita Interpreting Provider: Champ Ortega MD Abdomen/Pelvis CTA 02/26/18 10:22 IMPRESSION: 1. No acute abnormality in the chest, abdomen or pelvis. No aortic dissection. No PE. 2. Severe coronary artery disease of the LAD. 3. 1.4 cm right thyroid nodule. No further imaging follow-up is necessary, as outlined below. RECOMMENDATIONS: Managing Incidental Thyroid Nodule Detected at CT or MRI or US 1. Further evaluation by thyroid Ultrasound recommended for these incidental nodules: Patient Age 18 years or less - Nodule of any size Patient Age 19-34 years old - Nodule 1 cm in size or greater Patient Age 35 years or more - Nodule 1.5 cm in size or greater 2. Follow up thyroid ultrasound also recommend in these scenarios - Solitary nodule with high risk imaging features (locally invasive nodule or suspicious lymph nodes) - Heterogeneous, enlarged thyroid gland. - Increased uptake on PET 3. NO further imaging is recommended in the following scenarios - Any nodule not meeting above criteria. - Those patients with limited life expectancy or significant Co-morbidities. Note: These recommendations do not apply to pts. w/ increased risk for thyroid cancer or pts. with symptomatic thyroid disease. Recommendations for f/u of Incidental Thyroid Nodules (ITN) found on CT, MR, NM and Extrathyroidal US are based upon the ACR white paper and Artis 3-tiered system for managing ITNs: J Am Gato Radiol. 2014;12(2): 143-50 D/ 02/26/2018 11:12:45 Champ Ortega MD / lucita Interpreting Provider: Champ Ortega MD - Assessment and plan (1) Chest pain Current Visit: Yes Status: Acute Assessment and plan: Unclear etiology at this point ?Pericarditis Initially was concern for STEMI but trop -ve x 2, 2 hours apart, and EKG changes resolved spontaneously stat echo ordered, results pending follow with cardiology recs after Echo 1 more troponin to rule out ACS resume home meds for CAD Qualifiers: Chest pain type: chest pain on breathing Qualified Code(s): R07.1 - Chest pain on breathing; R07.81 - Pleurodynia (2) ESR raised Current Visit: Yes Status: Acute Assessment and plan: It appears that ESR, CRP were checked for the concern of pericarditis. Elevated at 35 and 68 respectively Patient however also endorses history of night sweats and unintentional weight loss of 20lbs since 07/2017 ?B symptoms No obvious lymphadenopathy appreciated in the neck, denies fever will need to be followed up outpatient including age-appropriate cancer screening, patient reportedly refused colonoscopy in the past. discussed in detail with the patient and his family (3) Atrial fibrillation Current Visit: Yes Status: Chronic Assessment and plan: resume home meds Qualifiers: Atrial fibrillation type: unspecified Qualified Code(s): I48.91 - Unspecified atrial fibrillation (4) CKD (chronic kidney disease) Current Visit: Yes Status: Chronic Assessment and plan: Stable, received IV contrast for CT angio IVF overnight Avoid nephrotoxins Nephrology consulted in the ED Qualifiers: Chronic kidney disease stage: stage 3 (moderate) Qualified Code(s): N18.3 - Chronic kidney disease, stage 3 (moderate) (5) Diabetes Current Visit: Yes Status: Acute Assessment and plan: On metformin and Januvia at home, hold off ADA diet, Accu-Cheks before meals and at bedtime with low-dose sliding scale after NPO is removed Qualifiers: Diabetes mellitus type: type 2 Diabetes mellitus chcf insulin use: without general manager road production use Diabetes mellitus complication status: with unspecified complications Qualified Code(s): E11.8 - Type 2 diabetes mellitus with unspecified complications (6) DVT prophylaxis Current Visit: Yes Status: Acute Assessment and plan: On Eliquis - Time Spent With Patient Total time spent is greater than 50% in coordination of care (as documented) at patient's floor/unit and/or counseling patient:
[2018-02-26] MEDS: 0.9 % Sodium Chloride 1,000 ML IVC SCH (15:50)
--- NOTE | 2018-02-26 16:31 | Pre-Sedation Evaluation ---
Pre-sedation evaluation - Pre-sedation checklist Date of procedure: 02/26/18 Procedure: LHC Recent Vitals: Last Vital Signs Temp 98.0 F 02/26/18 15:13 Pulse 74 02/26/18 15:13 Resp 15 02/26/18 15:13 BP 115/78 02/26/18 15:13 Pulse Ox 93 02/26/18 15:13 ASA Classification *see protocol: CLASS II-Mild systemic disease Cardiac Registry (Cardio Only) - Functional Capacity Functional Capacity: >=4 METS with symptoms - Clincal Frailty Scale Clinical Frailty Scale: Vulnerable
[2018-02-26] MEDS ORDERED: *HR* Heparin 10,000 UNIT/10 ML VIAL ONE (18:42)
[2018-02-26] MEDS ORDERED: ISOVUE-370 200 ML INFUS..BTL IV ONE (18:42)
[2018-02-26] MEDS ORDERED: Heparin 1,000 UNITS/500 mL 500 ML ONE (18:42)
[2018-02-26] MEDS ORDERED: Nitroglycerin 1,000 MCG/10 ML VIAL IV ONE (18:43)
[2018-02-26] MEDS ORDERED: *HR* FentaNYL (PF) 100 MCG/2 ML VIAL ONE (18:58)
[2018-02-26] MEDS ORDERED: *HR* Midazolam HCl 2 MG/2 ML VIAL ONE (18:58)
[2018-02-26] MEDS: Insulin LISPRO 300 UNITS/3 ML VIAL SQ SCH (19:07)
--- NOTE | 2018-02-26 19:43 | Invasive Diagnostic Lab Proc ---
Name: Ronaldo Swann Date of Study: 02/26/2018 Date: 1945 Ht: 70.9in Medical Record#: [id number] Age: 72 Wt: 218.26lb Gender: Male BSA: 2.19 Order #: [id number] BMI: 30.56 Physicians Procedure Physician: Say Gallegos MD Referring MD: Referring MD: Staff Name Position Time In LewJuwan centeno RN Monitor 06:54 PM Saul Duffy RN Hazmat Truck Driver 06:55 PM Shena Randolph RT (R) Scrub 06:55 PM Indications Indication Unstable Angina Procedures Performed Procedure L HRT ARTERY/VENTRICLE ANGIO Pre-Procedure Checklist Informed consent is complete signed and on chart. H&P is on chart. ID band is on and ID verified with patient. Patient NPO for procedure The procedure was described for the patient and questions were answered. Blood Pressure: 135/100 ECG is on chart. Rhythm: Atrial Fibrillation Plan of Care Patient will tolerate the procedure without complications. Adequate level of comfort will be maintained. Hemodynamics will remain stable Patient will recover from procedure without complications. Respiratory function will be maintained. Cardiac rhythm will remain stable. Patient temperature will be maintained. Patient and/or family have verbalized understanding of the procedure. Patient Education Chief Complaint/Reason for Test: Cardiac Cath Developmental Category: Geriatric (65+ years) Developmentally Appropriate for Age: Yes Learning Barriers: None Education Needs: Procedure Education Method: Verbal Information Taught: Cardiac Cath Educational Evaluation: Able to repeat information Intravenous Access Time IV Size Location DC'd Fluid/Drip Rate Units RN 18g 1 1/4" Patent On Arrival Rt Antecubital Saul Duffy RN 18g 1 1/4" Patent On Arrival Lt Arm 0.9NaCl Saul Duffy RN Allergies fluconazole Vital Signs Time BP (mmHg) HR (bpm) O2 Sat. RR (bpm) LOC 06:56 PM / % 5 = Fully awake and oriented or at pre-proc level 06:56 PM / % 4 = Oriented but drowsy 07:01 PM 134 / 76 86 99 % 13 07:06 PM 121 / 82 86 98 % 14 07:11 PM 123 / 73 87 96 % 12 07:16 PM 114 / 67 76 95 % 11 07:21 PM 121 / 74 71 96 % 12 07:26 PM 104 / 70 74 95 % 18 Procedural Medications Time Medication Dose Units Method Given By 06:56 PM Oxygen 2 L/min nasal cannula Saul Duffy RN 07:04 PM Versed 1 mg Intravenous Saul Duffy RN 07:04 PM Fentanyl 50 mcg Intravenous Saul Duffy RN 07:10 PM Lidocaine 2% 20 ml Subcutaneous Say Gallegos MD 07:12 PM Versed 0.5 mg Intravenous Saul Duffy RN 07:12 PM Fentanyl 25 mcg Intravenous Saul Duffy RN ASA Classification: CLASS II- Mild systemic disease (i.e. well-controlled diabetes, hypertension, asthma, cigarette smoking) Rekha Score Preprocedure Postprocedure Activity 2- Moves 4 extremities sustained head lift Activity 2- Moves 4 extremities sustained head lift Circulation 2- SBP +/= 20 points of pre-anesthetic level Circulation 2- SBP +/= 20 points of pre-anesthetic level Consciousness 2- Awake and alert oriented x 3 Consciousness 2- Awake and alert oriented x 3 O2 Saturation 2- Able to maintain O2 satruation of 92% on room air O2 Saturation 2- Able to maintain O2 satruation of 92% on room air Respiratory 2- Able to deep breathe and cough well Respiratory 2- Able to deep breathe and cough well Total Score 10 Total Score 10 Contrast Agent: Isovue Diagnostic Contrast: 15 ml Total Contrast: 15 ml Fluoro Dose: 5236 mGy Procedure Log Time Note Enter By 06:54 PM Pt arrived to cleaning laborer 2 at 18:54 [facility] 06:55 PM Juwan Hackett RN Position: Monitor Time in: 18:54 [facility] 06:55 PM Saul Duffy RN Position: Hazmat Truck Driver Time in: 18:55 [facility] 06:55 PM Shena Randolph RT (R) Position: Scrub Time in: 18:55 [facility] 06:55 PM Patient charges- Angio tray pack, Navilyst 3mm J, Pulse Oximetry and ACIST tubing and transducer [facility] 06:55 PM Hair removed from procedure site in holding area using clippers. Bilateral groin prepped with Chloraprep by Saul Duffy RN, then patient was draped. Skin intact. [facility] 06:55 PM Physician arrived 18:55 [facility] 06:55 PM Meet and greet completed [facility] 06:55 PM Sign in performed according to hospital policy. Informed consent was obtained. [facility] 06: PM Procedure start 18:55 [facility] 56 PM Time: 18:56 Patient comfortable and pain free: Yes [facility] 56 PM Time: 18:56LOC: 5 = Fully awake and oriented or at pre-proc level [facility] 56 PM ASA Class CLASS II- Mild systemic disease (i.e. well-controlled diabetes, hypertension, asthma, cigarette smoking) [facility] 56 PM Time: 18:56 Oxygen on at 2 L/min per nasal cannula by [facility] 06:57 PM Clinical Presentation: Unstable angina [facility] 07:00 PM Vitals capture started with the following parameters, Patient=Adult, Interval=5 min, Initial Eoqgoqgm=102 mmHg, Deflation Rate=5 mmHg, Cuff placed on Right Arm 07:00 PM Case Start 07:00 PM CathStat 07:01 PM HR=86 bpm, FHQZ=960/76 mmhg, SpO2=99.0 %, Resp=13 B/min, Comment=nsr 07:04 PM Time: 19:04 Versed 1 mg Intravenous Given by Saul Duffy RN [facility] 07:04 PM Time: 19:04 Fentanyl 50 mcg Intravenous Given by Saul Duffy RN [facility] 07:06 PM HR=86 bpm, PPOT=214/82 mmhg, SpO2=98.0 %, Resp=14 B/min, Comment=nsr 07:09 PM Time out was performed according to hospital policy. Conscious sedation and anesthesia was achieved (see medication log with in this report above) [facility] 07:10 PM Time: 19:10 20 ml Lidocaine 2% to right groin Subcutaneous Given by Say Gallegos MD [facility] 07:11 PM Time: 18:56 Patient comfortable and pain free: Yes [facility] 07:11 PM HR=87 bpm, YUYL=695/73 mmhg, SpO2=96.0 %, Resp=12 B/min, Comment=afib 07:11 PM Time: 18:56LOC: 4 = Oriented but drowsy [facility] 07:11 PM Micro-Introducer Kit utilized for sheath placement [facility] 07:12 PM Access obtained by percutaneous puncture. 4Fr 10cm Terumo [place] sheath placed in right Femoral artery. [id number] [email or web address] 07:12 PM Time: 19:12 Versed 0.5 mg Intravenous Given by Saul Duffy RN 07:13 PM Time: 19:12 Fentanyl 25 mcg Intravenous Given by Saul Duffy RN 07:13 PM 4Fr FR 4 catheter inserted over the wire [facility] [email or web address] 07:13 PM RCA angiography performed in multiple views. [email or web address] 07:14 PM Catheter removed [email or web address] 07:14 PM Coronary Dominance: right [email or web address] 07:15 PM 4Fr FL 4 catheter inserted over the wire [facility] [email or web address] 07:16 PM HR=76 bpm, ZGYY=693/67 mmhg, SpO2=95.0 %, Resp=11 B/min, Comment=afib 07:16 PM LCA angiography performed in multiple views. [email or web address] 07:16 PM Recorded Pressure: Ao, HR=82, Condition=Condition 1 (Aorta) Ao 91/61/77 07:18 PM Catheter removed [email or web address] 07:20 PM [facility] PM Procedure completed at 19:20 02/26/2018 [facility] 07:[facility] PM Did you address NEVILLE flow and Dominance? Yes [email or web address] 07:21 PM Sign out completed: Radiation Dose 468 mGy, 5236 cGy/cm2 Fluoro Time: 2.1 Isovue 370 - 200ml contrast 15 ml given by Say Gallegos MD. Complications: None. The patient was discharged out of the prosthetic lab technician in stable condition. Cardiac Rehab Consult needed: NoConfirmed administered medications: Yes [email or web address] 07:21 PM HR=71 bpm, GVIV=952/74 mmhg, SpO2=96.0 %, Resp=12 B/min 07:21 PM Isovue 370 - 200ml,1 Bottle(s) used. [email or web address] 07:24 PM Arterial sheath pulled using manual compression and V+ Pad for 10 minutes by Shena Randolph RT (R) [facility] 07:24 PM Estimated Blood Loss: less than 20cc [email or web address] 07:24 PM Post ECG Atrial Fibrillation [email or web address] 07:24 PM Post Blood Pressure 121/74 [email or web address] 07:24 PM 19:24 Post Pulses Bilateral DP 2+ [facility] PM Information taught Cardiac Cath [facility] 07:24 PM Education needs Procedure, Plan of Care, and Responsibilities of Patient in Care [facility] 07:24 PM Learning barriers :None [facility] 07:24 PM Education Methods Verbal [facility] 07:24 PM Education evaluation Able to repeat information [facility] 07:25 PM Site status No bleeding/hematoma - Rt Groin as reported by Shena Randolph RT (R) at 19:24 [facility] 07:25 PM Opsite applied [facility] 07:25 PM Plavix, Effient or Brilinta given No allan 07:25 PM Family placed in consult room. [facility] 07:25 PM Complications: None [facility] 07:26 PM HR=74 bpm, QWHE=463/70 mmhg, SpO2=95.0 %, Resp=18 B/min, Comment=afib 07:31 PM Vitals capture stopped. Complications Complication None None Hemodynamics Pressures Site Systolic/A Wave Diastolic/V Wave Mean AO 91 61 77 Post Procedure Information Blood Pressure: 121/74 mmHg Rhythm: Atrial Fibrillation Post procedural instructions were given Closure Device Time Device Success/Fail 02/26/2018 7:15:00 PM Manual Compression Successful Site Checks Time Location Status Staff Sheath In? Note 07:24 PM Rt Groin No bleeding/hematoma Shena Randolph RT (R) Pulses Time Site Pre-Procedure Post-Procedure Note Bilateral DP 2+ Bilateral PT 1+ 7:24:00 PM Bilateral DP 2+ Updated by Juwan Hackett RN on 02/26/2018 7:36:43 PM electronically signed on 02/26/2018 7:37:00 PM with status of Final
[2018-02-26] MEDS: Apixaban 2.5 MG TABLET PO SCH (21:18)
[2018-02-27] MEDS ORDERED: D5% in Water 1,000 ML IVC PRN (00:11)
[2018-02-27] MEDS: Insulin LISPRO 300 UNITS/3 ML VIAL SQ SCH (00:15)
[2018-02-27] MEDS: 0.9 % Sodium Chloride 1,000 ML IVC SCH ×2 (00:45→06:55)
[2018-02-27 05:12] LABS: Hematocrit 40.3 % (37.5-50.1); Mean Corpuscular HGB Conc 32.5 g/dL (31.6-35.5); Mean Corpuscular Volume 89.4 fL (83.0-100.0); Mean Platelet Volume 12.6 fL (9.4-12.4); Platelet Count 102 K/mcL (140-400); Red Blood Count 4.51 M/mcL (4.19-5.50); Red Cell Distribution Width 13.4 % (11.5-14.5)
[2018-02-27 05:14] LABS: Hemoglobin 13.1 g/dL (12.9-16.9)
[2018-02-27 05:32] LABS: Potassium 4.7 mEq/L (3.5-5.1)
--- NOTE | 2018-02-27 06:39 | Cardiology Progress Note ---
Date of Encounter: 02/27/18 Time of Encounter: 06:34 Assessment and Plan (1) Chest pain Status: Acute 72 year old male with history of CAD presented with severe chest pain for several hours. He also described dyspnea on exertion for one month. Due to concerns for unstable angina the patient was taken for cardiac catheterization for further evaluation. His EKG showed atrial fibrillation with ST elevation in leads V1 through V3 that was more prominent from prior EKGs. His EKG was reviewed by the interventionalists and he did not meet acute AK criteria. Troponin was negative. LHC showed patent LAD stent with other coronary arteries angiographically free of disease. TTE shows preserved EF. CTA of the chest was negative for PE or dissection. Continued medical management is recommended. He is recommended to follow with his special effects technician, Dr. Beasley. Continue aspirin and beta rima. Patient declines statin. Qualifiers: Chest pain type: chest pain on breathing Qualified Code(s): R07.1 - Chest pain on breathing; R07.81 - Pleurodynia (2) Atrial fibrillation Status: Chronic Recent diagnosis afib on eliquis. Currently rate controlled. He is following with Dr. Ny at [facility]. He is planning on antiarrhythmic therapy admission in the future. Telemetry review shows atrial fibrillation with average heart rate of 78 bpm. Minimum heart rate of 48 bpm at 2:11 AM. No atrial fibrillation with RVR seen. No significant pauses. No other arrhythmia seen. Qualifiers: Atrial fibrillation type: unspecified Qualified Code(s): I48.91 - Unspecified atrial fibrillation (3) SHANNAN (acute kidney injury) Status: Acute History of chronic kidney disease with baseline creatinine 1.4-2.0. serum creatinine elevated 2.53 today. He did undergo CTA and cardiac catheterization yesterday. I did discuss with patient and recommended increasing oral fluid intake. He received IV fluids overnight. We will need to monitor kidney function closely. He voices understanding of instructions. He is following with Dr. Little with [facility]. Discussion w patient/family: The assessment and plan as outlined above was discussed with the patient and/or family members who expressed understanding and agreement. All questions were answered. Thank you for involving us in the care of your patient. Please call with any questions. Subjective Principal diagnosis: chest pain Interval history: Mr. Swann is status post [facility]. There was no complication from his procedure. Objective Vital Signs, Last 4 Hours Temp Pulse Resp BP Pulse Ox 02/27/18 05:00 97.6 F 82 16 137/94 94 General: Conversant, No Apparent Distress HEENT: Atraumatic, Normocephaly, Mucus Membranes Moist Neck: No JVD, Normal carotid pulses Cardiac: Other (Irregular) Lungs: Normal Breath Sounds, No Wheeze, Rales, Rhonchi Neuro: Alert and responsive, No focal deficits noted Abdomen: Soft, Non-Tender Skin: No rashes noted on visualized skin Musculoskeletal: No Chest Wall Tenderness Extremities: No Clubbing, No Cyanosis, No Edema, Normal Pulses Results 02/27/18 04:25 02/27/18 04:25 Lab Results 02/26/18 02/27/18 02/27/18 17:30 04:25 04:25 WBC 10.3 Hgb 13.1 D Hct 40.3 Plt Count 102 L Sodium 134 L Potassium 4.7 Chloride 104 Carbon Dioxide 23 BUN 36 H Creatinine 2.53 H Glucose 300 H Calcium 8.0 L Troponin I < 0.03 - Imaging and Cardiology Echo: report reviewed - EKG Interpretation EKG results cardiology: personally reviewed Consult Discharge Plan - Plan Instructions: Atrial Fibrillation (DC), Chest Pain (DC), Left Heart Catheterization (DC), Diabetes Mellitus Type 2 in Adults (DC) Referrals: Yared Ppee MD [Non-Partnered Physician] -
[2018-02-27] MEDS ORDERED: Insulin LISPRO 300 UNITS/3 ML VIAL SQ SCH ×2 (07:30→21:00)
[2018-02-27 07:40] VITALS: BP 148/85
--- NOTE | 2018-02-27 07:50 | Discharge Summary ---
- NOTES TO OUTPATIENT PROVIDER Notes to Outpatient Provider: Follow-up with primary care provider for CKD3 and for monitoring of thyroid nodule Date of Encounter: 02/27/18 Time of Encounter: 08:00 - Discharge Diagnosis (1) Chest pain Priority: Primary Status: Acute Qualifiers: Chest pain type: chest pain on breathing Qualified Code(s): R07.1 - Chest pain on breathing; R07.81 - Pleurodynia (2) Atrial fibrillation Priority: Secondary Status: Chronic Qualifiers: Atrial fibrillation type: unspecified Qualified Code(s): I48.91 - Unspecified atrial fibrillation (3) CKD (chronic kidney disease) Priority: Secondary Status: Chronic Qualifiers: Chronic kidney disease stage: stage 3 (moderate) Qualified Code(s): N18.3 - Chronic kidney disease, stage 3 (moderate) (4) Diabetes Priority: Secondary Status: Acute Qualifiers: Diabetes mellitus type: type 2 Diabetes mellitus residential insulin use: without residential use Diabetes mellitus complication status: with unspecified complications Qualified Code(s): E11.8 - Type 2 diabetes mellitus with unspecified complications Hospital course: Patient is a 72-year-old male with past medical history significant for CAD s/p PCI to LAD in 2016, diabetes, hypertension, hyperlipidemia, Afib on Eliquis, was admitted for sudden onset of chest pain since last night. Achy in nature, constant, located on the left chest with radiation into L neck. Worse with breathing without clear association with exertion and no relieving factors In the ER, patients cardiac biomarker was negative but EKG was concerning for mild ST elevation in lead 1 and hence STEMI alert was activated. Patient was admitted to medical surgical floor for further workup and management. During patients hospital stay cardiology was consulted with recommendations for left heart catheterization which showed a patent LAD stent with other coronary arteriograms angiographically free of disease. Recommendations for patient to be discharged to follow-up with weight reduction specialist as an outpatient. - Time Spent with Patient Total time spent providing and/or coordinating discharge services: - Discharge Medications Home Medications: Acetaminophen/Butalbital/Caffe [Fioricet] 1 tab PO Q4-6H PRN 02/26/18 [History] Apixaban [Eliquis] 2.5 mg PO BID 02/26/18 [History] Aspirin [Adult Aspirin] 81 mg PO DAILY 02/26/18 [History] Carvedilol 12.5 mg PO BID 02/26/18 [History] Cyanocobalamin (Vitamin B-12) [Vitamin B12] 1,000 mcg PO DAILY 02/26/18 [History ] Eszopiclone [Lunesta] 2 mg PO HS PRN 02/26/18 [History] Isosorbide MONOnitrate (24 HR) [Imdur] 30 mg PO DAILY 02/26/18 [History] SitaGLIPtin [Januvia] 100 mg PO DAILY 02/26/18 [History] Testosterone Cypionate [Depo-Testosterone] 200 mg IM QWEEK 02/26/18 [History] Tramadol HCl [Ultram] 50 mg PO QID PRN 02/26/18 [History] amLODIPine [Norvasc] 5 mg PO DAILY 02/26/18 [History] metFORMIN [Glucophage] 1,000 mg PO BIDWM 02/26/18 [History] Allergies/Adverse Reactions: 3 Allergy/AdvReac Type Severity Reaction Status Date / Time fluconazole [From Diflucan] AdvReac Hives Verified 05/29/15 10:43 Date of admission: 02/26/18 14:11 Primary care physician: Yusef Rodas Jr, MD Consults: 02/26/18 15:28 Consult to Nutrition [CONS] Routine Comment: Consulting Provider: NUTRITION Reason for Dietary Consult: MST Score - Constitutional Vitals: Temp Pulse Resp BP Pulse Ox 97.7 F 77 15 148/85 96 02/27/18 07:39 02/27/18 07:39 02/27/18 07:39 02/27/18 07:39 02/27/18 07:39 General appearance: Present: A&O X 3, no acute distress Exam: As above - Psychiatric Psychiatric exam: Present: normal mood - Skin Skin exam: Present: normal color - Patient Status Disposition: Home, Self-Care Condition: Fair - Discharge Instructions Instructions: Atrial Fibrillation (DC), Chest Pain (DC), Left Heart Catheterization (DC), Diabetes Mellitus Type 2 in Adults (DC) Follow Up With: Yared Pepe MD [Non-Partnered Physician] -
[2018-02-27] MEDS: Apixaban 2.5 MG TABLET PO SCH (08:11)
[2018-02-27] MEDS ORDERED: Aspirin Enteric Coated 81 MG Tablet PO SCH (09:00)
[2018-02-27] MEDS ORDERED: amLODIPine 5 MG TABLET PO SCH (09:00)
[2018-02-27] MEDS ORDERED: Cyanocobalamin (B-12) 1,000 MCG TABLET PO SCH (09:00)
[2018-02-27] MEDS ORDERED: Isosorbide MONOnitrate (24 HR) 30 MG TAB.ER.24H PO SCH (09:00)
--- NOTE | 2018-02-27 09:16 | Electrocardiograph Report ---
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
--- NOTE | 2018-02-27 09:18 | Electrocardiograph Report ---
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
--- NOTE | 2018-02-27 09:28 | Electrocardiograph Report ---
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
--- NOTE | 2018-02-27 12:03 | Internal Med History&Physical ---
Date of Encounter: 02/27/18 Time of Encounter: 11:00 Internal Medicine - H&P: HPI Chief complaint: Chest pain Admitted From: Home Plans for Post Hospital Care: Home History of present illness: Patient is a 72-year-old male with past medical history significant for CAD s/p PCI to LAD in 2016, diabetes, hypertension, hyperlipidemia, Afib on Eliquis, was admitted for sudden onset of chest pain since last night. Achy in nature, constant, located on the left chest with radiation into L neck. Worse with breathing without clear association with exertion and no relieving factors In the ER, patients cardiac biomarker was negative but EKG was concerning for mild ST elevation in lead 1 and hence STEMI alert was activated. Patient was admitted to medical surgical floor for further workup and management. During patients hospital stay cardiology was consulted with recommendations for left heart catheterization which showed a patent LAD stent with other coronary arteriograms angiographically free of disease. Recommendations for patient to be discharged to follow-up with therapeutic recreation specialist as an outpatient. Past Med Surg Social Fam HX - Past Medical History Medical history: atrial fibrillation, diabetes, hypertension, other Psychiatric history: no psych history - Past Surgical History Surgical History: other - Social History Smoking Status: Never smoker Smokeless Tobacco Status: Yes Alcohol use: occasionally Drug use: none Internal Medicine - H&P: Meds Acetaminophen/Butalbital/Caffe [Fioricet] 1 tab PO Q4-6H PRN 02/26/18 [History] Apixaban [Eliquis] 2.5 mg PO BID 02/26/18 [History] Aspirin [Adult Aspirin] 81 mg PO DAILY 02/26/18 [History] Carvedilol 12.5 mg PO BID 02/26/18 [History] Cyanocobalamin (Vitamin B-12) [Vitamin B12] 1,000 mcg PO DAILY 02/26/18 [History ] Eszopiclone [Lunesta] 2 mg PO HS PRN 02/26/18 [History] Isosorbide MONOnitrate (24 HR) [Imdur] 30 mg PO DAILY 02/26/18 [History] SitaGLIPtin [Januvia] 100 mg PO DAILY 02/26/18 [History] Testosterone Cypionate [Depo-Testosterone] 200 mg IM QWEEK 02/26/18 [History] Tramadol HCl [Ultram] 50 mg PO QID PRN 02/26/18 [History] amLODIPine [Norvasc] 5 mg PO DAILY 02/26/18 [History] metFORMIN [Glucophage] 1,000 mg PO BIDWM 02/26/18 [History] 3 Allergy/AdvReac Type Severity Reaction Status Date / Time fluconazole [From Diflucan] AdvReac Hives Verified 05/29/15 10:43 All Systems PM: A 10-system review of systems was performed and is negative for pertinent findings except as documented above in the HPI. - Constitutional Vitals: Temp Pulse Resp BP Pulse Ox 97.7 F 77 15 148/85 96 02/27/18 07:39 02/27/18 07:39 02/27/18 07:39 02/27/18 07:39 02/27/18 07:39 Internal Med - H&P Results - Labs CBC & Chem 7: 02/27/18 04:25 02/27/18 04:25 Labs: Short CBC 02/27/18 Range/Units 04:25 WBC 10.3 (4.3-11.1) K/mcL Hgb 13.1 D (12.9-16.9) g/dL Hct 40.3 (37.5-50.1) % Plt Count 102 L (140-400) K/mcL BMP 02/27/18 04:25 Sodium 134 L Potassium 4.7 Chloride 104 Carbon Dioxide 23 BUN 36 H Creatinine 2.53 H Glucose 300 H Calcium 8.0 L Cardiac Enzymes 02/26/18 Range/Units 17:30 Troponin I < 0.03 (< 0.04) ng/mL - Assessment and plan (1) Chest pain Status: Acute Qualifiers: Chest pain type: chest pain on breathing Qualified Code(s): R07.1 - Chest pain on breathing; R07.81 - Pleurodynia (2) Atrial fibrillation Status: Chronic Qualifiers: Atrial fibrillation type: unspecified Qualified Code(s): I48.91 - Unspecified atrial fibrillation (3) CKD (chronic kidney disease) Status: Chronic Qualifiers: Chronic kidney disease stage: stage 3 (moderate) Qualified Code(s): N18.3 - Chronic kidney disease, stage 3 (moderate) (4) Diabetes Status: Acute Qualifiers: Diabetes mellitus type: type 2 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
== END 2018-02-27 08:35 | disposition home or self-care (01) ==
LOC: EMEROOARM 09:30 → 2NENU 09:30 → SUATTDRO 14:11 → 2NENU 15:12
PROVIDERS: ADMIT Internal Medicine; ATTEND Hospitalist